=== PATIENT | female | born 1980 | race Caucasian/White ===

== ENCOUNTER 2018-10-31 14:46 | Inpatient (IN) | payer OTHER ==
[~2018-10-31] VITALS: Ht 162.6 cm; Wt 48.5 kg
--- NOTE | 2018-10-31 15:33 | NUR ---
PRE ASSESSMENT: A 38 year old female in intake for ETOH withdrawal. She is odorous of alcohol and disheveled. Her speech is loud but clear. BP 128/74 P 135 R 16 o2 sat 98%. She states she last drank an hour ago and has had 180 ml of Vodka since 330 am this morning. She reports drinking 1.8 Liters of Vodka and 144 oz of beer daily in this pattern for 1 year with an 8 year history. She also takes 25-50 mg of Librium that she got from ER for 10 days. She started on Oct 22. Will assess on unit.
[2018-10-31 15:46] VITALS: BP 128/74
[2018-10-31] MEDS ORDERED: LOPERAMIDE HCL 2 MG CAPSULE PO PRN ×2 (16:30)
[2018-10-31] MEDS ORDERED: MAG HYDROX/AL HYDROX/SIMETH 30 ML LIQUID UDC PO PRN (16:30)
[2018-10-31] MEDS ORDERED: DIAZEPAM 10 MG TABLET PO PRN (16:30)
[2018-10-31] MEDS ORDERED: ONDANSETRON 4 MG/2 ML VIAL IM PRN (16:30)
[2018-10-31] MEDS ORDERED: IBUPROFEN 600 MG TABLET PO PRN (16:30)
[2018-10-31] MEDS ORDERED: DIAZEPAM 5 MG TABLET PO PRN (16:30)
[2018-10-31] MEDS ORDERED: 5 DAY TAPER VALIUM-SERENITY PROTOCOL PO PRN (16:30)
[2018-10-31] MEDS ORDERED: THIAMINE HCL 200 MG/2 ML VIAL IM ONE (16:30)
[2018-10-31] MEDS: THIAMINE HCL 100 MG TABLET PO SCH (16:30)
[2018-10-31] MEDS ORDERED: MIRALAX 17 GM POWD.PACK PO PRN (16:30)
[2018-10-31] MEDS ORDERED: ONDANSETRON ODT 4 MG TAB.RAPDIS SL PRN (16:30)
[2018-10-31] MEDS ORDERED: MAGNESIUM HYDROXIDE 30 ML LIQUID UDC PO PRN (16:30)
[2018-10-31] MEDS ORDERED: LORAZEPAM 2 MG/1 ML VIAL IM PRN (16:30)
[2018-10-31] MEDS: MULTIVITAMINS,THERAPEUTIC TABLET PO SCH (16:30)
[2018-10-31] MEDS: FOLIC ACID 1 MG TABLET PO SCH (16:30)
[2018-10-31] MEDS ORDERED: ACETAMINOPHEN 325 MG TABLET PO PRN (16:30)
[2018-10-31 16:50] LABS: BILIRUBIN,TOTAL 0.4 mg/dL (0.2-1.0); CREATININE 0.7 mg/dL (0.6-1.3); MAGNESIUM 1.8 mg/dL (1.8-2.4); POTASSIUM 3.1 mmol/L (3.5-5.1); TOTAL PROTEIN, SERUM 8.4 g/dL (6.4-8.2)
[2018-10-31 17:02] LABS: BASOPHILS % (AUTO) 0.4 % (0.0-2.0); EOSINOPHILS # (AUTO) 0.1 K/uL (0.0-0.7); EOSINOPHILS % (AUTO) 1.5 % (0.0-7.0); HEMATOCRIT 41.8 % (31.2-41.9); HEMOGLOBIN 14.7 g/dL (10.9-14.3); LYMPHOCYTES % (AUTO) 29.5 % (20.5-51.5); MEAN CORPUSCULAR HEMOGLOBIN 32.3 uug (24.7-32.8); MEAN CORPUSCULAR HGB CONC 35 g/dL (32.3-35.6); MEAN CORPUSCULAR VOLUME 92.3 fL (75.5-95.3); MONOCYTES # (AUTO) 0.8 K/uL (2.0-10.0); MONOCYTES % (AUTO) 11.5 % (0.0-11.0); NEUTROPHILS % (AUTO) 57.1 % (38.5-71.5); PLATELET COUNT (AUTO) 64 K/uL (179-408); RED BLOOD CELL COUNT(AUTO) 4.53 MIL/uL (3.63-4.92); WHITE BLOOD COUNT (AUTO) 6.9 K/uL (3.8-11.8)
[2018-10-31 17:06] LABS: *URINE HCG, QUAL NEGATIVE (NEGATIVE)
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
[2018-10-31 17:11] LABS: THYROID STIMULATING HORMONE 1.389 mIU/mL (0.358-3.740)
[2018-10-31 17:14] LABS: *AMPHETAMINE, URINE POSITIVE (NEGATIVE); *BARBITURATE, URINE NEGATIVE (NEGATIVE); *CANNABINOID, URINE NEGATIVE (NEGATIVE); *COCCAINE, URINE NEGATIVE (NEGATIVE); *OPIATE, URINE NEGATIVE (NEGATIVE); *PHENCYCLIDINE SCREEN,URINE NEGATIVE (NEGATIVE)
--- NOTE | 2018-10-31 18:05 | NUR ---
Pt is reporting anxiety,restlessness and agitation. She reports she is starting to feel her withdrawal symptoms. CIWA 8 Administered Valium PRN 5 mg PO. Will monitor effectiveness. Also administered IM Thiamine as ordered. Encouraged increased fluids. Will continue to monitor and manage s/s of w/d..
--- NOTE | 2018-10-31 19:08 | NUR ---
END OF SHIFT: Unable to reassess CIWA for effectiveness of PRN Valium as she is in a 12 step meeting at this time. She is newly admitted. Last CIWA 8. She is A/O X 4. Encouraged increased fluids. Endorsed to prep cook nurse.
--- NOTE | 2018-10-31 19:40 | NUR ---
Start of Shift Patient Received. Patient is a 38 year old female admitted today for ETOH Withdrawals. Patient was started on a 5 day Valium taper. Labs rendered with Potassium noted to be 3.1. Will relay to CN and MD for new orders. Patient received Valium 5mg for increased signs and symptoms of withdrawal. Upon rounds patient is noted returning from group meeting. Patient is noted to be disheveled with flat worried affect. Patient is noted to verbalize increased anxiety, agitation, restlessness, tremors, chills, and sweats. Patient is requesting to go down stairs for group/social interaction and then to receive medications once she arrives back on unit. Patient denies any hallucinations. Patient is ambulatory with no assistance needed. All needs attended to promptly. Will continue plan of care as ordered.
[2018-10-31 20:03] LABS: BAND % (MANUAL) 4 % (0-10); EOSINOPHILS % (MANUAL) 3 % (0-8); LYMPHOCYTES % (MANUAL) 29 % (20-40); MONOCYTES % (MANUAL) 10 % (2-10); NEUTROPHILS % (MANUAL) 54 % (42-75)
[2018-10-31 20:15] VITALS: BP 130/79
[2018-10-31] MEDS ORDERED: POTASSIUM CHLORIDE 20 MEQ TAB.PRT.SR PO ONE (20:30)
[2018-10-31] MEDS: DIAZEPAM 10 MG TABLET PO PRN (20:51)
--- NOTE | 2018-10-31 21:00 | NUR ---
CIWA Assessment/PRN Medication Administration Patient continues to be monitored for increased signs and symptoms of ETOH withdrawals. Patient is noted with increased anxiety, agitation, restlessness, tremors, increased chills and sweats, light and auditory sensitivity. Patient denies hallucinations at the moment. CIWA is noted to be 23. PRN Valium 20mg administered. Patient is noted with abnormal Potassium level of 3.1 and is supplemented with one time dose of KDUR 40meq. Patient was able to tolerate well. Will continue to monitor.
--- NOTE | 2018-10-31 22:00 | NUR ---
PRN Medication Reassessment Patient is noted in bed, awake, alert and verbally responsive. Breathing even and non labored. Patient is able to verbalize "I feel like the medication helped a little. I can't tell if I'm working myself up because I'm home sick. I'm going to try and just watch some TV and maybe go smoke to see if I can relax. " PRN Valium 20mg noted to be effective. Will continue to monitor.
[2018-10-31 23:00] VITALS: BP 132/92
[2018-10-31] MEDS ORDERED: DIAZEPAM 10 MG TABLET PO ONE (23:20)
[2018-10-31] MEDS: diphenhydrAMINE 50 MG CAPSULE PO PRN (23:20)
--- NOTE | 2018-10-31 23:40 | NUR ---
PRN Medication Administration Patient is noted in bed, awake, alert and verbally responsive. Patient is noted with lights off and tv on. Patient verbalizes increased anxiety, agitation, restlessness, intermittent chills and sweats, tremulous, light sensitivity and auditory sensitivity. Patient is also noted to verbalize inability of falling asleep. Patient states "I thought maybe it's because I'm so emotional about being away from home but I just can't relax. " Relayed to MD with one time dose of Valium 20mg. Dose administered with PRN Benadryl. Will continue to monitor.
[2018-11-01 00:42] VITALS: BP 115/81
--- NOTE | 2018-11-01 00:43 | NUR ---
CIWA Assessment/PRN medication Reassessment Patient is noted in bed with eyes closed. Breathing even and non labored. Patient is easily awakened to verbal stimuli. She is compliant with vitals. Vitals rendered. She is noted to easily fall back to sleep with no complications noted. PRN Valium 20mg and PRN Benadryl noted to be effective. CIWA not able to be completed as per order. Will continue to monitor.
[2018-11-01 04:27] VITALS: BP 122/82
--- NOTE | 2018-11-01 04:28 | NUR ---
CIWA Assessment Patient is noted in bed with eyes closed. Breathing even and non labored. Patient is compliant with vitals. Vitals rendered as per order. Patient is noted to easily fall back to sleep with no complications noted. CIWA not able to be completed as per order. Will continue to monitor.
--- NOTE | 2018-11-01 07:02 | NUR ---
End of Shift Patient is noted in bed with eyes closed. Breathing even and non labored. No signs of restlessness or facial grimacing noted. Patient continues on a 5 day Valium taper. Patient was supplemented with KDUR 40meq for Potassium level of 3.1. Patient received PRN Valium 20 mg, PRN Benadryl, and one time dose of Valium 20mg with medications noted to be effective. Patients last noted CIWA 26. Patient noted to sleep a total of 7 hours. Patient is noted to be disheveled with flat worried affect. Patient is noted to verbalize increased anxiety, agitation, restlessness, tremors, chills, and sweats. Patient denies hallucinations and is ambulatory with no assistance needed. All needs attended to promptly. Will endorse to continue plan of care as ordered.
[2018-11-01 07:16] LABS: BASOPHILS % (AUTO) 0.6 % (0.0-2.0); EOSINOPHILS # (AUTO) 0.2 K/uL (0.0-0.7); EOSINOPHILS % (AUTO) 5.2 % (0.0-7.0); HEMATOCRIT 41.7 % (31.2-41.9); HEMOGLOBIN 14.6 g/dL (10.9-14.3); LYMPHOCYTES # (AUTO) 1.5 K/uL (20.0-40.0); LYMPHOCYTES % (AUTO) 34.7 % (20.5-51.5); MEAN CORPUSCULAR HEMOGLOBIN 32.7 uug (24.7-32.8); MEAN CORPUSCULAR HGB CONC 35 g/dL (32.3-35.6); MEAN CORPUSCULAR VOLUME 93.5 fL (75.5-95.3); MONOCYTES # (AUTO) 0.4 K/uL (2.0-10.0); MONOCYTES % (AUTO) 8.3 % (0.0-11.0); NEUTROPHILS # (AUTO) 2.2 K/uL (1.8-8.9); NEUTROPHILS % (AUTO) 51.2 % (38.5-71.5); PLATELET COUNT (AUTO) 53 K/uL (179-408); RED BLOOD CELL COUNT(AUTO) 4.46 MIL/uL (3.63-4.92); WHITE BLOOD COUNT (AUTO) 4.2 K/uL (3.8-11.8)
[2018-11-01 07:24] LABS: CREATININE 0.7 mg/dL (0.6-1.3); MAGNESIUM 1.9 mg/dL (1.8-2.4); POTASSIUM 3.8 mmol/L (3.5-5.1)
--- NOTE | 2018-11-01 07:30 | NUR ---
START OF SHIFT Pt 38 y/o female admitted for etoh withdrawal. Pt received in room on bed with eyes closed resting, but arousable to name. Pt alert and oriented to name, place, and time. Perrla. Skin warm and moist to touch. Respirations even and unlabored. Bilateral hand tremors noted. Anxious and restless. Fidgety. Resting bilateral hand tremors noted. Perspiration on forehead noted. Appears disheveled. Clothes scattered throughout the room. Encouraged to maintain hygiene. It was reported that pt slept for 7 hours last night. Pt is on a 5 day valium taper and is on day 1. Bed on lowest position with side rails x 2 up for safety. Call light within reach.
[2018-11-01 08:00] VITALS: BP 142/104
[2018-11-01 08:10] LABS: EOSINOPHILS % (MANUAL) 5 % (0-8); LYMPHOCYTES % (MANUAL) 34 % (20-40); MONOCYTES % (MANUAL) 6 % (2-10); NEUTROPHILS % (MANUAL) 55 % (42-75)
[2018-11-01] MEDS: THIAMINE HCL 100 MG TABLET PO SCH (08:20)
[2018-11-01] MEDS: FOLIC ACID 1 MG TABLET PO SCH (08:20)
[2018-11-01] MEDS: MULTIVITAMINS,THERAPEUTIC TABLET PO SCH (08:20)
[2018-11-01] MEDS: DIAZEPAM 10 MG TABLET PO SCH ×3 (08:21→21:17)
[2018-11-01] MEDS ORDERED: TUBERCULIN,PURIF.PROT.DERIV. 5 TU/0.1 ML TEST ID ONE (09:00)
[2018-11-01] MEDS ORDERED: 5 DAY TAPER VALIUM-SERENITY PROTOCOL PO PRN (09:00)
[2018-11-01] MEDS: DIAZEPAM 10 MG TABLET PO PRN ×2 (09:26→12:13)
--- NOTE | 2018-11-01 09:34 | NUR ---
PRN VALIUM ciwa=20. Resting bilateral arm tremors. Diaphoretic. Anxious and restless. Fidgety. Pressured speech. Valium 20mg po prn per MD order given.
--- NOTE | 2018-11-01 10:34 | NUR ---
PRN VALIUM EVAL ciwa=15. Anxious and restless. Bilateral resting arm tremors. Irritable. Perspiration on head noted.
[2018-11-01 12:00] VITALS: BP 126/87
[2018-11-01] MEDS ORDERED: CHLO25CA22 PO (12:00)
--- NOTE | 2018-11-01 12:00 | NUR ---
LABS plt count =53. MD aware.
--- NOTE | 2018-11-01 12:13 | NUR ---
Therapist prompted client to attend group therapy.
--- NOTE | 2018-11-01 12:19 | NUR ---
PRN VALIUM ciwa=20. Anxious and restless. Resting bilateral arm tremors. Irritable and agitated. Intermittent perspirations. Fidgety. Complaints of generalized discomfort.
--- NOTE | 2018-11-01 13:19 | NUR ---
PRN VALIUM EVAL ciwa=14.Anxious and restless. irritable. Bilateral resting arm tremors.
[2018-11-01 16:00] VITALS: BP 115/78
--- NOTE | 2018-11-01 19:25 | NUR ---
END OF SHIFT Pt 38 y/o female admitted for etoh withdrawal. Pt alert and oriented to name, place, and time. Perrla. Skin warm and moist to touch. Respirations even and unlabored. Appears disheveled. Clothes and empty drink bottles scattered throughout the room. Encouraged to maintain hygiene. Pressured speech. Resting bilateral arm tremors throughout the day. Anxious and restless. Appears worried. Pt is on a 5 day valium taper and is on day 1. Bed on lowest position with side rails x2 up for safety. Call light within reach.
--- NOTE | 2018-11-01 19:30 | NUR ---
Start of Shift Patient Received. Per endorsement, patient continues on a modified Valium taper. Patient received PRN Valium 20mg zx2 for increased signs and symptoms of withdrawal. Last noted CIWA 12. Patient has been compliant with group and social activities. Patient continues to display increased anxiety, agitation, increased chills, sweats, and tremors. Upon rounds patient is noted in the activities room participating in a group meeting. Will continue plan of care as ordered.
[2018-11-01 20:33] VITALS: BP 108/78
[2018-11-01] MEDS ORDERED: DIAZEPAM 10 MG TABLET PO ONE (23:30)
[2018-11-01] MEDS: diphenhydrAMINE 50 MG CAPSULE PO PRN (23:33)
--- NOTE | 2018-11-01 23:35 | NUR ---
One time Valium 20mg and PRN Medication administration Patient is noted with increased tremors, chills, sweats, anxiety, agitation, restlessness, light sensitivity, and inability of falling asleep. CIWA noted to be 24. Relayed to CN and MD with new order for one time dose of Valium 20mg. PRN Benadryl administered for sleep. All needs attended to promptly. Will continue to monitor.
[2018-11-02 00:25] VITALS: BP 110/69
--- NOTE | 2018-11-02 00:27 | NUR ---
CIWA Assessment/PRN Medication Reassessment Patient is noted in bed with eyes closed. Breathing even and non labored. Patient is noted to easily awaken upon entering room. She is compliant with vitals as ordered. CIWA Assessment not able to be completed as per order due to patient noted to easily fall back to sleep with no complications noted. No restlessness or facial grimacing noted. One time dose of Valium 20mg and PRN Benadryl noted to be effective. Will continue to monitor.
[2018-11-02 04:00] VITALS: BP 107/65
--- NOTE | 2018-11-02 04:15 | NUR ---
CIWA Assessment/PRN Medication Reassessment Patient is noted in bed with eyes closed. Breathing even and non labored. Patient is noted to easily awaken upon entering room. She is compliant with vitals as ordered. CIWA Assessment not able to be completed as per order due to patient noted to easily fall back to sleep with no complications noted. No restlessness or facial grimacing noted. Will continue to monitor.
--- NOTE | 2018-11-02 07:06 | NUR ---
End of Shift Patient is noted in bed with eyes closed. Breathing even and non labored. No signs of restlessness or facial grimacing. Patient continues on a modified Valium taper. She received PRN Benadryl and onetime dose of Valium 20mg for CIWA of 24. Patient was noted with increased anxiety, restlessness, agitation, chills, sweats, and is noted to be emotionally labile. She is noted to be flat, depressed with worried affect. Patient was noted to be compliant with group and social activities. Last noted CIWA 24. Patient is noted to sleep a total of 7 hours. All needs attended to promptly. Will continue plan of care as ordered.
--- NOTE | 2018-11-02 07:30 | NUR ---
START OF SHIFT Pt 38 y/o female admitted for etoh withdrawal. Pt received in room on bed with eyes closed resting, but arousable to name. Pt alert and oriented to name, place, and time. Perrla. Skin warm and moist to touch. Respirations even and unlabored. Appears disheveled. Empty drink bottles scattered throughout the room. Encourage to maintain hygiene. Anxious and restless. Fidgety. Bilateral hand tremors noted. Perspiration on head noted. It was reported that pt slept for7 hours last night. Pt is on a 5 day valium taper and is on day 2. Bed on lowest position with side rails x2 up for safety. Call light within reach.
[2018-11-02 08:00] VITALS: BP 119/83
[2018-11-02 08:06] LABS: HEPATITIS B SURFACE AG Negative (Negative)
[2018-11-02] MEDS: DIAZEPAM 5 MG TABLET PO SCH ×4 (09:29→20:26)
[2018-11-02] MEDS: THIAMINE HCL 100 MG TABLET PO SCH (09:29)
[2018-11-02] MEDS: MULTIVITAMINS,THERAPEUTIC TABLET PO SCH (09:29)
[2018-11-02] MEDS: FOLIC ACID 1 MG TABLET PO SCH (09:29)
[2018-11-02 12:00] VITALS: BP 104/84
[2018-11-02 16:00] VITALS: BP 103/77
--- NOTE | 2018-11-02 18:55 | NUR ---
END OF SHIFT Pt 38 y/o female admitted for etoh withdrawal. Pt alert and oriented to name, place, and time. Perrla. Skin warm and moist to touch. Respirations even and unlabored. Appears disheveled. Empty drink bottles scattered throughout the room. Encouraged to maintain hygiene. Last ciwa=15 @ 1600. Anxious and restless. Bilateral hand tremors noted. Fidgety. Irritable. Intermittent perspiration. Attended group activity. Pt is on a 5 day valium taper and is on day 2. Bed on lowest position with side rails x2 up for safety. Call light within reach.
--- NOTE | 2018-11-02 19:30 | NUR ---
Start of shift note Received report from day shift nurse. Patient is 38 year old female admitted for ETOH withdrawal . Patient is on 2nd day of her 5 day Valium taper. Patient did not require PRN medication . Last CIWA 15. Patient in the room resting. Patient present with flat affect and depressed mood. Patient reports anxiety, restlessness, bilateral hand tremors, hot and cold sweats and fatigue. Safety measures in place. Will continue to monitor.
[2018-11-02 20:00] VITALS: BP 109/70
[2018-11-03] VITALS: BP 112/74
[2018-11-03] MEDS: diphenhydrAMINE 50 MG CAPSULE PO PRN ×2 (02:21→22:58)
[2018-11-03] MEDS: HYDROXYZINE PAMOATE 25 MG CAPSULE PO PRN (02:21)
[2018-11-03] MEDS: CLONIDINE HCL 0.1 MG TABLET PO PRN (02:21)
--- NOTE | 2018-11-03 02:21 | NUR ---
PRN Clonidine, Vistaril and Benadryl administration Patient reports anxiety, restlessness and difficulty falling asleep.
--- NOTE | 2018-11-03 03:21 | NUR ---
PRN Clonidine, Vistaril and Benadryl re-assessment Patient in bed with eyes closed. Respiration even and unlabored. Will continue to monitor
[2018-11-03 04:00] VITALS: BP 115/68
--- NOTE | 2018-11-03 07:34 | NUR ---
End of shift note Monitored patient throughout shift . Patient presented with flat affect and depressed mood. Patient reported anxiety, restlessness, bilateral hand tremors, hot and cold sweats and fatigue. Scheduled medication and taper given as ordered, tolerated well. Patient had difficulty falling asleep. Patient was given PRN Clonidine, Vistaril and Benadryl . Safety measures in place. Will continue to monitor. Patient slept 2 hours. Fluid intake 1,253 ml. Voided x 3. No BM.
--- NOTE | 2018-11-03 07:40 | NUR ---
START OF SHIFT Endorse rcvd from ongoing nurse, client is in room, lying in bed on her R side, she sound asleep, easy to awaken, RR 16, even, non-labored. Client is on 3rd of 5 day Valium taper. Last CIWA 11 @ 1999. PRN Clonidine 0.1mg PO for anxiety, Vistaril 50mg PO for anxiety, Benadryl 50mg PO for insomnia, client slept 2 hrs. [place] precautions/seizure. Side rails x 2 up/padded. Call light within reach. Will continue to monitor. . Client had an uneventful night, he has been sleeping for the past 7hrs. [place] precautions. Side rails x 2 up. Call light within reach. Will continue to monitor.
[2018-11-03 08:00] VITALS: BP 98/69
[2018-11-03] MEDS: MULTIVITAMINS,THERAPEUTIC TABLET PO SCH (09:36)
[2018-11-03] MEDS: THIAMINE HCL 100 MG TABLET PO SCH (09:36)
[2018-11-03] MEDS: FOLIC ACID 1 MG TABLET PO SCH (09:36)
[2018-11-03] MEDS: DIAZEPAM 5 MG TABLET PO SCH ×3 (09:36→21:04)
--- NOTE | 2018-11-03 09:36 | NUR ---
CIWA 13 Client presents with anxious mood, anhedonia, cold/chills, body aches, restless legs, sweats, clammy skin, and agitation. Schedule Valium 5mg PO. Call light within reach. Will continue to monitor.
--- NOTE | 2018-11-03 12:39 | NUR ---
Therapist prompted client to attend all daily group therapy sessions.
[2018-11-03 12:55] VITALS: BP 102/65
--- NOTE | 2018-11-03 12:55 | NUR ---
CIWA 13 Client reports agitation, anhedonia, anxiety, cold/chills, clammy skin, depression, difficulty concentrating, difficulty thinking clearly, tremors, and fatigue. Non-pharmacologic measures rendered. Will continue to monitor. Call light within reach.
--- NOTE | 2018-11-03 15:38 | NUR ---
CIWA 14 Client continues to present with agitation, anxiety, poor appetite, cold/chills, clammy skin, depression, difficulty concentrating, difficulty thinking clearly, emotional volatility, fatigue, tremors, flushed facial skin, inability to sleep, and pins and needle feeling on lower extremities. Schedule Valium 5mg PO administered. Encourage client to attend group therapy to learn skills to maintain sober. Call light within reach.
[2018-11-03 16:46] VITALS: BP 116/69
--- NOTE | 2018-11-03 19:32 | NUR ---
END OF SHIFT Endorse client to incoming nurse, client is in room, a/o x 4, client continues to present with agitation, anxiety, poor appetite, cold/chills, clammy skin, depression, difficulty concentrating, difficulty thinking clearly, emotional volatility, fatigue, tremors, flushed facial skin, inability to sleep, and pins and needle feeling on lower extremities. Client denies N/V/D, no SI/HI. Client is on 3rd of 5 day Valium taper. Last CIWA 14 @ 1600. Client is compliant with group therapy. Consumes 50% of meals. Adequate PO fluid intake 2092mL, void x 3, stool x 1. Call light within reach.
[2018-11-03 20:00] VITALS: BP 110/68
--- NOTE | 2018-11-03 20:00 | NUR ---
Start of Shift Patient is observed to be isolative, melancholic and easily agitated. She is emotionally labile, withdrawn and verbalized feelings of "emotional roller coaster". Patient speaks in a soft manner. She appears flushed and c/o intermittent nausea and hot flushes. She is also noted to have tremors. She is on a 5-day Valium taper that started on 11/01/2018. Fall, universal, seizure and safety prec in place. Call light within reach. Last CIWA=12. Will continue to monitor.
--- NOTE | 2018-11-03 22:59 | NUR ---
PRN Benadryl Patient c/o inability to sleep. Administered Benadryl 50 mg PO. Will reassess.
[2018-11-04] VITALS: BP 104/66
[2018-11-04] MEDS: HYDROXYZINE PAMOATE 25 MG CAPSULE PO PRN ×2 (00:19→22:01)
--- NOTE | 2018-11-04 00:19 | NUR ---
PRN VISTARIL ADMINISTRATION Pt reports anxiety and still hasn't slept since Benadryl administration. Safety measures in place. Call light within reach. Will continue to monitor.
--- NOTE | 2018-11-04 01:20 | NUR ---
Vistaril reassess Patient is asleep on bed, with no SOB nor facial grimacing noted.
--- NOTE | 2018-11-04 04:00 | NUR ---
CIWA deferred Patient asleep on bed, with no SOB nor facial grimacing noted. CIWA deferred per MD order. RR=14.
--- NOTE | 2018-11-04 07:24 | NUR ---
End of Shift Patient continues to be withdrawn and melancholic. She is emotionally labile and is teary-eyed at times when being spoken to. Patient intermittently verbalized feelings of guilt. Educated patient with coping mechanisms. She continues to c/o intermittent nausea and hot flushes and is noted to have tremors. She will start her 4th day of the 5-day Valium taper today. PRN Benadryl was administered, it was not effective so Vistaril was then administered and was effective in alleviating patient's anxiety so she was able to sleep. Fall, universal, seizure and safety prec in place. Call light within reach. Last CIWA=11 and slept for 5 hours. Endorsed to Am shift nurse for continuity of care.
--- NOTE | 2018-11-04 07:40 | NUR ---
START OF SHIFT Received report from material handler 2nd shift nurse. Pt is lying in bed resting with eyes closed and is easily arousable. She is a 38 yo female admitted to [facility] on 10/31 for ETOH withdrawal. She is A&O and ambulatory with a steady gait. NKA, full code, regular diet. She is on day 4 of a 5 day Valium tapers. Respirations even and unlabored. Skin is warm and moist. She reports anxiety. She is noted with tremors. Her affect is flat and mood is depressed. She is guarded with soft speech. Her appearance is disheveled. PRN Benadryl and Vistaril administered on material handler 2nd shift. Last CIWA was 11 and she slept for 5 hours[address] Safety measures in place.
[2018-11-04 08:00] VITALS: BP 95/58
[2018-11-04 08:38] LABS: EOSINOPHILS # (AUTO) 0.2 K/uL (0.0-0.7); LYMPHOCYTES % (AUTO) 43.4 % (20.5-51.5); MEAN CORPUSCULAR HEMOGLOBIN 33.1 uug (24.7-32.8)
[2018-11-04 08:45] LABS: BASOPHILS # (AUTO) 0.1 K/uL (0.0-8.0); HEMATOCRIT 42.1 % (31.2-41.9); HEMOGLOBIN 14.6 g/dL (10.9-14.3); LYMPHOCYTES # (AUTO) 3.1 K/uL (20.0-40.0); MEAN CORPUSCULAR HGB CONC 35 g/dL (32.3-35.6); MEAN CORPUSCULAR VOLUME 95.6 fL (75.5-95.3); MONOCYTES # (AUTO) 0.7 K/uL (2.0-10.0); MONOCYTES % (AUTO) 9.2 % (0.0-11.0); NEUTROPHILS # (AUTO) 3.1 K/uL (1.8-8.9); NEUTROPHILS % (AUTO) 43.4 % (38.5-71.5); WHITE BLOOD COUNT (AUTO) 7.1 K/uL (3.8-11.8)
[2018-11-04 08:46] LABS: PLATELET COUNT (AUTO) 78 K/uL (179-408)
[2018-11-04 08:52] LABS: BILIRUBIN,DIRECT 0.1 mg/dL (0.0-0.2); BILIRUBIN,TOTAL 0.5 mg/dL (0.2-1.0); TOTAL PROTEIN, SERUM 7.6 g/dL (6.4-8.2)
[2018-11-04] MEDS: FOLIC ACID 1 MG TABLET PO SCH (08:54)
[2018-11-04] MEDS: THIAMINE HCL 100 MG TABLET PO SCH (08:55)
[2018-11-04] MEDS: DIAZEPAM 5 MG TABLET PO SCH ×2 (08:55→22:01)
[2018-11-04] MEDS: MULTIVITAMINS,THERAPEUTIC TABLET PO SCH (08:55)
[2018-11-04 09:42] LABS: BASOPHILS % (MANUAL) 1 % (0-2); EOSINOPHILS % (MANUAL) 3 % (0-8); LYMPHOCYTES % (MANUAL) 47 % (20-40); MONOCYTES % (MANUAL) 11 % (2-10); NEUTROPHILS % (MANUAL) 37 % (42-75)
[2018-11-04 12:00] VITALS: BP 110/74
[2018-11-04 12:23] LABS: REACTIVE LYMPHOCYTES 1 % (0-0)
[2018-11-04 16:30] VITALS: BP 105/63
--- NOTE | 2018-11-04 19:37 | NUR ---
END OF SHIFT Report provided to reordering clerk nurse. Pt is in her room resting. She is a 38 yo female admitted to [facility] on 10/31 for ETOH withdrawal. She is A&O and ambulatory with a steady gait. NKA, full code, regular diet. She is on the 4th day of a 5 day Valium taper. Her affect is flat and mood is depressed. She attended all group meetings and is compliant with treatment. Valium is effective and managing withdrawal symptoms. She reports that her appetite is improving. She drank 2000mL. No PRN medications administered. Last CIWA was 8. Safety measures in place.
--- NOTE | 2018-11-04 19:46 | NUR ---
START OF SHIFT NOTE Rcvd report from outgoing nurse. Pt is a 38 y/o female A/O to person, place, time, and purpose. Pt was admitted for medically supervised withdrawal from ETOH. Pt is on day 4 of a 5 day Valium taper. Pt has been presenting w/ tremors, sweats, chills, anxiety, restlessness, depressed mood, and flat affect. Pt rcvd no PRN medications during previous shift. Last CIWA 8 @ 1600. Call light is within reach. Pt will continue to be monitored and needs met.
[2018-11-04 20:00] VITALS: BP 118/85
[2018-11-04] MEDS: diphenhydrAMINE 50 MG CAPSULE PO PRN (22:01)
[2018-11-04] MEDS: CLONIDINE HCL 0.1 MG TABLET PO PRN (22:01)
--- NOTE | 2018-11-04 22:01 | NUR ---
PRN BENADRYL, CLONIDINE, AND VISTARIL ADMINISTRATION Benadryl 50mg for sleep, Clonidine 0.1mg and Vistaril 50mg for anxiety were given. Will reassess pt in 1hr.
--- NOTE | 2018-11-04 23:01 | NUR ---
PRN BENADRYL, CLONIDINE, AND VISTARIL REASSESSMENT Pt is in bed w/ her eyes closed. Pt's respirations are unlabored and even.
--- NOTE | 2018-11-05 | NUR ---
CIWA DEFERRED AND V/S REFUSED Pt is in bed w/ her eyes clsoed. Pt's respirations are unlabored and even.
--- NOTE | 2018-11-05 07:11 | NUR ---
END OF SHIFT NOTE Endorsed pt to oncoming nurse. Pt is a 38 y/o female A/O to person, place, time, and purpose. Pt was admitted for medically supervised withdrawal from ETOH. Pt completed day 4 of a 5 day Valium taper. Pt continued presenting w/ tremors, sweats, chills, anxiety, restlessness, depressed mood, and flat affect. Pt denies any S/I or H/I. PRN Benadryl, Clonidine, and Vistaril were given and noted effective. Pts fluid intake was 1800ml and she slept for 8hrs. Last CIWA 8 @ 2000. Call light is within reach.
--- NOTE | 2018-11-05 07:45 | NUR ---
START OF SHIFT Endorse rcvd from ongoing nurse, client is sitting in her bed, she presents with anxious mood, flat affect, tremors, and difficulty concentrating. Client reports anxiety, sweating, restless legs, frontal headache, and difficulty falling asleep. Encourage client to increase PO fluid intake as tolerated to facilitate detox. Encouraged client to attend group therapy to learn skills to maintain sober. PRN Clonidine 0.1mg Po for agitation, Vistaril 50mg PO for anxiety, Benadryl 50mg Po for insomnia, SETHI, Client slept 8 hrs. Client is on last of 5 day Valium taper, last CIWA 8 @ 1999. [place]/seizure precautions. Bed in lowest/locked position. Side rail x 2 up/padded. Will continue to monitor.
[2018-11-05 08:36] VITALS: BP 104/66
[2018-11-05] MEDS: FOLIC ACID 1 MG TABLET PO SCH (08:39)
[2018-11-05] MEDS: MULTIVITAMINS,THERAPEUTIC TABLET PO SCH (08:39)
[2018-11-05] MEDS: THIAMINE HCL 100 MG TABLET PO SCH (08:39)
[2018-11-05] MEDS ORDERED: DIAZEPAM 5 MG TABLET PO SCH (09:00)
[2018-11-05 12:00] VITALS: BP 104/68
--- NOTE | 2018-11-05 12:00 | NUR ---
CIWA 10 Client reports high levels of anxiety and agitation. Non-pharmacologic measures rendered. Call light within reach.
[2018-11-05] MEDS ORDERED: DIPH50CA37 PO (15:54)
[2018-11-05] MEDS ORDERED: MULT-24 PO (15:54)
[2018-11-05] MEDS ORDERED: CLON0.1T14 PO (15:54)
[2018-11-05] MEDS ORDERED: HYDR-3895 PO (15:54)
--- NOTE | 2018-11-05 16:00 | NUR ---
CIWA 8 Client continue to present with anxiety, agitation, flat affect, and difficulty concentrating. Non-pharmacologic measures rendered. Call light within reach. Will continue to monitor.
[2018-11-05 16:47] VITALS: BP 113/72
--- NOTE | 2018-11-05 19:42 | NUR ---
END OF SHIFT Endorse client to incoming nurse, client is in room, a/o x 4, fully ambulatory, client continues to present with anxiety, agitation, flat affect, and difficulty concentrating. Client completed 5 day Valium taper, last CIWA 8 @ 1600. Client is schedule for discharge tomorrow am to [facility] for continuity of care. Client is compliant with group therapy. Consumes 50% of meals. Adequate PO fluid intake 2105mL, void x 4. Call light within reach.
--- NOTE | 2018-11-05 19:50 | NUR ---
Start of shift note Patient is a 38 year old female admitted on 10/31/18 for medically supervised ETOH and Benzo withdrawal. Patient completed a 5 day Valium taper. Pt is on fall and seizure precautions. Per endorsement pt had no PRN medications during this shift. Pt is being discharged tomorrow 11/06/18. Upon rounds pt was noted in bed resting, AOx4. Explained plan of care and she verbalized understanding. Pt has been compliant and attends treatment group. Pt continues to present with anxiety, insomnia, agitation and tremors. Pt is breathing even and unlabored. Safety measures in place, bed locked in low position, side rails up x2, and call light within reach. Will continue to monitor.
[2018-11-05 20:00] VITALS: BP 105/68
[2018-11-05 22:24] VITALS: BP 105/68
[2018-11-05] MEDS: HYDROXYZINE PAMOATE 25 MG CAPSULE PO PRN (22:24)
[2018-11-05] MEDS: diphenhydrAMINE 50 MG CAPSULE PO PRN (22:24)
[2018-11-05] MEDS: CLONIDINE HCL 0.1 MG TABLET PO PRN (22:24)
--- NOTE | 2018-11-05 22:24 | NUR ---
PRN Benadryl, Clonidine and Vistaril Pt is presenting with anxiety, agitation and difficulty falling asleep. Administered PRN Benadryl, Clonidine and Vistaril and she tolerated well. Pt is breathing even and unlabored. Safety measures in place and will continue to monitor.
--- NOTE | 2018-11-05 23:24 | NUR ---
Reassessment PRN Benadryl, Clonidine and Vistaril Pt is resting in bed with eyes closed, lights off. Pt is breathing even and unlabored. Medication noted to be effective. Will continue to monitor.
--- NOTE | 2018-11-06 07:31 | NUR ---
End of shift note Patient is a 38 year old female admitted on 10/31/18 for medically supervised ETOH and Benzo withdrawal. Patient completed a 5 day Valium taper. Pt is on fall and seizure precautions. Pt's last CIWA was 8. Pt had PRN Clonidine, Benadryl and Vistaril during this shift. Pt is being discharged today 11/06/18. Pt is still presenting with anxiety and agitation. Pt was cooperative with treatment plan. Pt is breathing even and unlabored with no s/s of distress. Pt slept for 9 hours and had a total of 1,355 ml. Pt voided x 4 and had no bowel movements during this shift. Safety measures in place, bed locked in low position, side rails up x2, and call light within reach. Will endorse to day shift.
--- NOTE | 2018-11-06 07:45 | NUR ---
start of shift note: received pt from game designer/creative director nurse, pt is in stable condition no s/s of pain or discomfort. pt is admitted to [facility] for benzo/opiate withdrawal/dependence. pt's last documneted cows is 5 and ciwa 6. pt slept for 6 hrs. pt is set to discharge today. will assist pt in discharging and will continue to monitor pt for any changes.
[2018-11-06] MEDS: THIAMINE HCL 100 MG TABLET PO SCH (09:01)
[2018-11-06] MEDS: MULTIVITAMINS,THERAPEUTIC TABLET PO SCH (09:01)
[2018-11-06] MEDS: FOLIC ACID 1 MG TABLET PO SCH (09:01)
--- NOTE | 2018-11-06 09:37 | NUR ---
discharge note: pt left the unit in stable condition without acute withdrawal symptoms, pt teaching administered and pt verbalized understanding. pt will be transferred to [facility] via private transportation
== END 2018-11-06 09:38 | disposition other institution (70) | DRG 895 ==
LOC: EDBD 14:46 → SRC 14:46
PROVIDERS: ADMIT Family Medicine Addiction Medicine; ATTEND Family Medicine Addiction Medicine
DX: F10.230 Alcohol dependence with withdrawal, uncomplicated (principal); F10.220 Alcohol dependence with intoxication, uncomplicated; F12.10 Cannabis abuse, uncomplicated; Y90.8 Blood alcohol level of 240 mg/100 ml or more; F41.0 Panic disorder [episodic paroxysmal anxiety]; D69.6 Thrombocytopenia, unspecified; E87.6 Hypokalemia; F17.210 Nicotine dependence, cigarettes, uncomplicated; Z81.1 Family history of alcohol abuse and dependence; Z81.3 Family history of other psychoactive substance abuse and dependence; F15.10 Other stimulant abuse, uncomplicated; F41.1 Generalized anxiety disorder; R74.0 Nonspecific elevation of levels of transaminase and lactic acid dehydrogenase [LDH]; I95.9 Hypotension, unspecified
CPT/HCPCS: 36415; 70030-TC; 80307; 80324; 80346; 83690; 83735; 84443; 84703; 85025; 85730; 86580; 86592; 86705; 86803; 87340; 87806; G0480; J3411; Q0163